=== PATIENT | female | born 1970 | race Caucasian/White ===

== ENCOUNTER 2018-08-28 09:04 | Day surgery (SDC) | payer OTHER ==
[2018-08-28] MEDS ORDERED: PROPOFOL 40 ML (10:25)
[2018-08-28] MEDS ORDERED: LIDOCAINE 2% (SDV) 5 ML INJ (10:25)
[2018-08-28] MEDS ORDERED: MIDAZOLAM 1 MG/ML 2 ML INJ (10:25)
[2018-08-28] MEDS ORDERED: HYDROmorphONE 1 MG/5 ML IV SYRINGE IV (10:30)
[2018-08-28] MEDS ORDERED: ONDANSETRON 4 MG INJ IV (10:30)
== END 2018-08-28 14:03 | disposition home or self-care (01) ==
LOC: GIL 09:04
DX: R19.4 Change in bowel habit (principal); D12.5 Benign neoplasm of sigmoid colon; K64.8 Other hemorrhoids
CPT/HCPCS: 45380; 88305